=== PATIENT | female | born 1965 | race Caucasian/White ===

== ENCOUNTER 2016-09-15 06:47 | Emergency (ER) | payer OTHER ==
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
[2016-09-15] MEDS: Diph,Pert(Acell),Tet Vac 0.5 ML SYR IM ONE (07:19)
== END 2016-09-15 07:49 | disposition home or self-care (01) ==
LOC: ER 06:47
DX: S61.211A Laceration without foreign body of left index finger without damage to nail, initial encounter (principal); W45.8XXA Other foreign body or object entering through skin, initial encounter; Y92.009 Unspecified place in unspecified non-institutional (private) residence as the place of occurrence of the external cause
CPT/HCPCS: 64450; 90715; 96372; 99283

== ENCOUNTER 2016-11-26 15:55 | Emergency (ER) | payer OTHER ==
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
[2016-11-26] MEDS: MAGNESIUM HYDROXIDE/AL HYDROX 30 ML, LIDOCAINE VISC 2% 200 MG PO ONE ×2 (16:45)
[2016-11-26] MEDS: KETOROLAC 30 MG/ML VIAL IVP ONE (16:46)
[2016-11-26] MEDS: 0.9 % SODIUM CHLORIDE 1000ML 1,000 ML IV PRN (16:46)
[2016-11-26 17:03] LABS: BASO % 0.5 % (0-6); EOS % 3.6 % (0-6); GRAN % 53.8 % (47-80); HEMATOCRIT 41.2 % (35.0-47.0); HEMOGLOBIN 13.9 gm/dl (11.6-16.0); LYMPH % 35.3 % (16-45); MEAN CORPUSCULAR HGB CONC 33.7 g/dl (32-36); MEAN PLATELET VOLUME 9.6 fl (7.4-10.4); MONO % 6.8 % (0-9); PLATELET COUNT 269 K/uL (130-400); RED BLOOD COUNT 4.79 M/uL (3.80-5.40); RED CELL DISTRIBUTION WIDTH 12.8 % (11.5-14.5)
[2016-11-26 17:21] LABS: ALBUMIN 4.1 g/dL (4.0-5.0); ALKALINE PHOSPHATASE 71 U/L (35-104); ALT/SGPT 10 U/L (<33); AST/SGOT 14 U/L (10.0-35.0); BILIRUBIN,DIRECT 0.2 mg/dL (0-0.3); BLOOD UREA NITROGEN 14 mg/dL (6-20); CREATININE 0.7 mg/dL (0.5-0.9); EST GLOMERULAR FILTRATION RATE > 60 mL/min; GLUCOSE,RANDOM 93 mg/dL (74-109); LIPASE 19 U/L (13-60); TOTAL PROTEIN 7.8 g/dL (6.6-8.7)
[2016-11-26 18:00] LABS: URINE BILIRUBIN NEGATIVE (NEGATIVE); URINE BLOOD NEGATIVE (NEGATIVE); URINE COLOR YELLOW; URINE GLUCOSE (UA) NEGATIVE (NEGATIVE); URINE KETONE NEGATIVE (NEGATIVE); URINE LEUKOCYTE ESTERASE SMALL (NEGATIVE); URINE NITRITE NEGATIVE (NEGATIVE); URINE PROTEIN NEGATIVE (NEGATIVE); URINE UROBILINOGEN 0.2 E.U./dL (0.20 - 1.00)
[2016-11-26 18:07] LABS: URINE APPEARANCE SL CLOUDY
[2016-11-26 18:08] LABS: URINE BACTERIA 4+; URINE RBC NONE SEEN (NONE SEEN)
--- NOTE | 2016-11-28 16:19 | CT SCAN REPORT ---
EXAM: CT SCAN ABDOMEN/PELVIS WO CONTRAST HISTORY: ABDOMINAL PAIN. TECHNIQUE: Sequential axial images were obtained from the diaphragms through the ischiorectal fossa without intravenous contrast administration. Sagittal and coronal reformatted images were performed. FINDINGS: Visualized lung bases demonstrate a focal area of scarring/ atelectasis in the right lateral lung base. There is a small sliding-type hiatal hernia. The nonopacified liver, gallbladder, pancreas, and spleen appear normal. The adrenal glands and kidneys appear normal. There is a nonobstructing calculus in the right kidney. No CT findings suggestive of obstructive uropathy. The urinary bladder appears normal. The uterus appears normal. There is fibroid change to the uterus. The small bowel appears normal. The appendix is surgically removed. The osseous structures are normal. IMPRESSION: 1. SMALL NONOBSTRUCTING CALCULUS IN THE RIGHT KIDNEY. NO CT FINDINGS SUGGESTIVE OF OBSTRUCTIVE UROPATHY. 2. THE APPENDIX IS SURGICALLY REMOVED. 3. FIBROID CHANGE TO THE UTERUS. JOB NUMBER: [id number] [facility]
--- NOTE | 2016-11-28 16:22 | ULTRASOUND REPORT ---
EXAM: ULTRASOUND ABDOMEN, COMPLETE HISTORY: ABDOMINAL PAIN. TECHNIQUE: Sonographic evaluation of the abdomen was performed using holland- scale imaging. FINDINGS: There is a benign-appearing cyst in the left lobe of the liver measuring 7 mm x 6 mm. There are no gallstones or ductal dilatation. The common bile duct measures 3 mm. The pancreas and spleen appear normal. The kidneys are normal in size with no hydronephrosis or nephrolithiasis. The abdominal aorta and inferior vena cava are patent. IMPRESSION: BENIGN-APPEARING CYST IN THE LEFT LOBE OF THE LIVER MEASURING 8 MM. THE REMAINDER OF THE EXAMINATION IS UNREMARKABLE. JOB NUMBER: [id number] [facility]
== END 2016-11-26 18:30 | disposition home or self-care (01) ==
LOC: ER 15:55
DX: K29.00 Acute gastritis without bleeding (principal); R10.11 Right upper quadrant pain
CPT/HCPCS: 99284 ×2; 96374; 83690; 85025; 80076; 80048; 81001; 76700; 74176; J1885

== ENCOUNTER 2017-11-25 19:20 | Emergency (ER) | payer OTHER ==
[2017-11-25] MEDS ORDERED: KETOROLAC 30 MG/ML VIAL IVP ONE (19:32)
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
[2017-11-25 19:42] LABS: BASO % 0.4 % (0-6); EOS % 1.6 % (0-6); GRAN % 54.9 % (47-80); HEMATOCRIT 41.5 % (35.0-47.0); HEMOGLOBIN 13.4 gm/dl (11.6-16.0); LYMPH % 36.9 % (16-45); MEAN CELL VOLUME 87.6 fl (81-97); MEAN CORPUSCULAR HEMOGLOBIN 28.3 pg (27-33); MEAN CORPUSCULAR HGB CONC 32.3 g/dl (32-36); MEAN PLATELET VOLUME 9.9 fl (7.4-10.4); MONO % 6.2 % (0-9); PLATELET COUNT 315 K/uL (130-400); RED BLOOD COUNT 4.74 M/uL (3.80-5.40); RED CELL DISTRIBUTION WIDTH 13.2 % (11.5-14.5); WHITE BLOOD COUNT W/O DIFF 9.4 K/uL (4.2-12.2)
[2017-11-25] MEDS ORDERED: 0.9 % SODIUM CHLORIDE 1000ML 1,000 ML IV SCH (19:45)
[2017-11-25 19:49] LABS: BLOOD UREA NITROGEN 10 mg/dL (6-20); CREATININE 0.8 mg/dL (0.5-0.9); EST GLOMERULAR FILTRATION RATE > 60 mL/min
[2017-11-25 19:50] LABS: TOTAL PROTEIN 7.6 g/dL (6.6-8.7)
[2017-11-25 19:52] LABS: GLUCOSE,RANDOM 101 mg/dL (74-109)
[2017-11-25 19:54] LABS: ALB/GLOB RATIO 1.2 (1.1-1.8); ALBUMIN 4.1 g/dL (4.0-5.0); ALT/SGPT 9 U/L (<33); AST/SGOT 13 U/L (10.0-35.0)
[2017-11-25 19:55] LABS: ALKALINE PHOSPHATASE 97 U/L (35-104)
== END 2017-11-25 20:56 | disposition home or self-care (01) ==
LOC: ER 19:20
DX: R09.1 Pleurisy (principal); R07.1 Chest pain on breathing; R06.00 Dyspnea, unspecified; Z86.711 Personal history of pulmonary embolism
CPT/HCPCS: 71275; 80053; 84484; 85025; 96374; 99284; J1885; J7030

== ENCOUNTER 2018-04-10 20:49 | Emergency (ER) | payer OTHER ==
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
[2018-04-10] MEDS ORDERED: ONDANSETRON 4 MG ODT TABLET SL ONE (21:47)
== END 2018-04-10 22:00 | disposition short-term general hospital (02) ==
LOC: ER 20:49
DX: M79.604 Pain in right leg (principal); I10 Essential (primary) hypertension; Z79.01 Long term (current) use of anticoagulants; Z86.718 Personal history of other venous thrombosis and embolism
CPT/HCPCS: 85379; 99285

== ENCOUNTER 2018-06-19 12:25 | Emergency (ER) | payer OTHER ==
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
[2018-06-19 13:06] LABS: BASO % 0.3 % (0-6); EOS % 0.3 % (0-6); GRAN % 71.4 % (47-80); HEMATOCRIT 41.4 % (35.0-47.0); HEMOGLOBIN 13.3 gm/dl (11.6-16.0); LYMPH % 22.2 % (16-45); MEAN CELL VOLUME 88.8 fl (81-97); MEAN CORPUSCULAR HEMOGLOBIN 28.5 pg (27-33); MEAN CORPUSCULAR HGB CONC 32.1 g/dl (32-36); MEAN PLATELET VOLUME 9.3 fl (7.4-10.4); MONO % 5.8 % (0-9); PLATELET COUNT 310 K/uL (130-400); RED BLOOD COUNT 4.66 M/uL (3.80-5.40); RED CELL DISTRIBUTION WIDTH 13.9 % (11.5-14.5); WHITE BLOOD COUNT W/O DIFF 9.9 K/uL (4.2-12.2)
[2018-06-19] MEDS ORDERED: ACETAMINOPHEN 1,000 MG/100 ML BTL IVPB ONE (13:10)
[2018-06-19 13:21] LABS: BLOOD UREA NITROGEN 16 mg/dL (6-20); EST GLOMERULAR FILTRATION RATE > 60 mL/min
[2018-06-19 13:22] LABS: TOTAL PROTEIN 7.4 g/dL (6.6-8.7)
[2018-06-19 13:24] LABS: GLUCOSE,RANDOM 102 mg/dL (74-109)
[2018-06-19 13:25] LABS: URINE APPEARANCE CLEAR; URINE BILIRUBIN NEGATIVE (NEGATIVE); URINE BLOOD LARGE (NEGATIVE); URINE COLOR YELLOW; URINE GLUCOSE (UA) NEGATIVE (NEGATIVE); URINE KETONE NEGATIVE (NEGATIVE); URINE LEUKOCYTE ESTERASE NEGATIVE (NEGATIVE); URINE NITRITE NEGATIVE (NEGATIVE); URINE PROTEIN NEGATIVE (NEGATIVE); URINE UROBILINOGEN 0.2 E.U./dL (0.20 - 1.00)
[2018-06-19 13:25] LABS: PARTIAL THROMBOPLASTIN TIME 25.5 SECONDS (24.5-39.1); PROTHROMBIN TIME (PATIENT) 10.4 SECONDS (9.5-12.1)
[2018-06-19 13:26] LABS: ALT/SGPT 11 U/L (<33)
[2018-06-19 13:27] LABS: ALB/GLOB RATIO 1.4 (1.1-1.8); ALBUMIN 4.3 g/dL (4.0-5.0); ALKALINE PHOSPHATASE 76 U/L (35-104); AST/SGOT 15 U/L (10.0-35.0); CREATINE PHOSPHOKINASE 110 U/L (26-192)
[2018-06-19] MEDS ORDERED: KETOROLAC 30 MG/ML VIAL IVP ONE (13:28)
[2018-06-19 13:31] LABS: URINE WBC NONE SEEN (0-2/hpf)
--- NOTE | 2018-06-22 10:41 | CT SCAN REPORT ---
EXAM: CT SCAN OF THE ABDOMEN AND PELVIS WITHOUT CONTRAST HISTORY: BILATERAL FLANK PAIN WITH BLOOD IN URINE. PREVIOUS HISTORY OF KIDNEY STONES. TECHNIQUE: Standard CT imaging of the abdomen and pelvis was performed without contrast. Additional coronal and sagittal reformatted images were also performed. Comparison: 11/26/16. FINDINGS: There is mild atelectasis at the right lung base. The lung bases are otherwise clear. Tiny cysts within the left hepatic lobe are unchanged. The liver is otherwise unremarkable. The gallbladder, biliary tree, pancreas, spleen, and adrenal glands are normal. There is a 2 mm nonobstructing stone within the right kidney. The kidneys and ureters are otherwise normal. There is no obstructing calculus or hydronephrosis. The aorta is normal in caliber. There is no retroperitoneal lymphadenopathy. There are stable low density fibroids within the uterus. A 3.5 x 2 cm cyst is present within the left ovary. The right ovary is normal in appearance. There are a few scattered diverticula within the sigmoid colon with no evidence for acute diverticulitis. A few right sided diverticula are also present with no diverticulitis. The appendix is surgically absent. There is no pneumoperitoneum or ascites. The urinary bladder is normal. There are no acute osseous abnormalities. IMPRESSION: 1. NO ACUTE INTRAABDOMINAL PATHOLOGY. 2. 2 MM NONOBSTRUCTING STONE WITHIN THE RIGHT KIDNEY. THERE IS NO OBSTRUCTING CALCULUS OR HYDRONEPHROSIS. 3. COLONIC DIVERTICULOSIS WITH NO DIVERTICULITIS. 4. MULTIPLE LOW DENSITY UTERINE FIBROIDS ARE AGAIN NOTED AND ARE NOT SIGNIFICANTLY DIFFERENT. 5. 3.5 X 2 CM LEFT OVARIAN CYST. JOB NUMBER: [id number] MTDD
== END 2018-06-19 14:44 | disposition left against medical advice (07) ==
LOC: ER 12:25
DX: R07.2 Precordial pain (principal); R06.00 Dyspnea, unspecified; R31.0 Gross hematuria
CPT/HCPCS: 74176; 80053; 81001; 82550; 82553; 84484; 85025; 85379; 85610; 85730; 93005; 93010; 96365; 96375; 99284; J1885

== ENCOUNTER 2018-06-24 10:33 | Observation (INO) | payer OTHER ==
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
[2018-06-24] MEDS ORDERED: 0.9 % SODIUM CHLORIDE 1,000 ML BAG IV ONE (11:16)
[2018-06-24] MEDS ORDERED: PROMETHAZINE HCL 12.5 MG in 0.9 % SODIUM CHLORIDE 100ML 100 ML IVPB ONE (11:17)
[2018-06-24] MEDS ORDERED: ACETAMINOPHEN 1,000 MG/100 ML BTL IVPB ONE (11:55)
[2018-06-24 12:00] LABS: ABSOLUTE NEUTROPHIL COUNT 5.58; BASO % 0.3 % (0-6); EOS % 0.8 % (0-6); GRAN % 70.4 % (47-80); HEMATOCRIT 43.1 % (35.0-47.0); HEMOGLOBIN 14.3 gm/dl (11.6-16.0); LYMPH % 23.7 % (16-45); MEAN CORPUSCULAR HEMOGLOBIN 29.2 pg (27-33); MEAN CORPUSCULAR HGB CONC 33.2 g/dl (32-36); MEAN PLATELET VOLUME 9.5 fl (7.4-10.4); MONO % 4.8 % (0-9); PLATELET COUNT 309 K/uL (130-400); RED CELL DISTRIBUTION WIDTH 13.3 % (11.5-14.5); WHITE BLOOD COUNT W/O DIFF 7.9 K/uL (4.2-12.2)
[2018-06-24 12:11] LABS: BLOOD UREA NITROGEN 12 mg/dL (6-20); CREATININE 0.8 mg/dL (0.5-0.9); EST GLOMERULAR FILTRATION RATE > 60 mL/min
[2018-06-24 12:12] LABS: TOTAL PROTEIN 8.1 g/dL (6.6-8.7)
[2018-06-24 12:14] LABS: GLUCOSE,RANDOM 91 mg/dL (74-109)
[2018-06-24 12:17] LABS: ALB/GLOB RATIO 1.3 (1.1-1.8); ALBUMIN 4.5 g/dL (4.0-5.0); ALKALINE PHOSPHATASE 84 U/L (35-104); ALT/SGPT 13 U/L (<33); AST/SGOT 20 U/L (10.0-35.0)
[2018-06-24] MEDS ORDERED: ACETAMINOPHEN 325 MG TAB PO PRN (16:07)
[2018-06-24] MEDS ORDERED: HYDROMORPHONE HCL 2 MG/ML VIAL IVP PRN ×2 (16:07→21:51)
[2018-06-24] MEDS ORDERED: ONDANSETRON HCL IV 4 MG/2 ML VIAL IVP PRN (16:07)
[2018-06-24] MEDS ORDERED: CYCLOBENZAPRINE 10MG TABLET PO PRN (18:01)
[2018-06-24] MEDS: ACETAMINOPHEN 1,000 MG/100 ML BTL IVPB SCH (18:02)
[2018-06-24] MEDS: 0.9 % SODIUM CHLORIDE 1000ML 1,000 ML IV PRN (20:49)
[2018-06-24] MEDS ORDERED: KETOROLAC 30 MG/ML VIAL IVP PRN (21:50)
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
[2018-06-25] MEDS: ACETAMINOPHEN 1,000 MG/100 ML BTL IVPB SCH ×2 (00:14→05:54)
[2018-06-25] MEDS: 0.9 % SODIUM CHLORIDE 1000ML 1,000 ML IV PRN (05:56)
--- NOTE | 2018-06-25 08:06 | CT SCAN REPORT ---
EXAM: NONCONTRAST CT OF THE BRAIN HISTORY: RECENT FALL, HEADACHE. TECHNIQUE: Noncontrast CT of the brain was obtained. Comparison: CT of the brain 01/13/17. FINDINGS: No midline shift, mass effect, or abnormal intra or extraaxial fluid collection. No cerebral edema, focal mass or intracranial hemorrhage detected. Mild bilateral frontal lobe volume loss, stable. The ventricle sizes are similar from prior examination. The basal cisterns are not effaced. No evidence of displaced calvarial fracture. Small polyps or retentions cysts in the right maxillary sinus, otherwise no significant opacification of the paranasal sinuses or mastoid air cells. IMPRESSION: 1. NO ACUTE INTRACRANIAL FINDINGS. JOB NUMBER: [id number] [facility]
--- NOTE | 2018-06-25 10:15 | Discharge Summary ---
Providers Discharge Summary Date: 06/25/18 Date of admission: 06/24/18 15:33 Expected Date of Discharge: 06/25/18 Attending physician: JALEESA RAMOS Primary care physician: JULIO EATON M.D. Physical Exam - Vital Signs Vital Signs: Vital Signs - Last 24 Hrs Temp Pulse Pulse Resp BP BP Pulse Ox 06/25/18 08:44 16 06/25/18 05:00 97.6 F 42 L 18 126/59 98 06/25/18 00:00 97.9 F 41 L 18 119/68 95 06/24/18 20:00 97.9 F 49 L 20 133/61 97 06/24/18 16:07 97.7 F 56 L 16 163/67 99 06/24/18 12:48 47 L 18 111/49 94 L 06/24/18 10:52 97.6 F 49 L 20 143/80 97 - General General Appearance: Alert, Oriented x3, Cooperative, No acute distress Limitations: No limitations - Head Head exam: Atraumatic, Normocephalic - Eye Eye exam: Normal appearance, PERRL - ENT ENT exam: Normal exam, Mucous membranes moist Throat exam: Normal inspection. negative: Tonsillar erythema, Tonsillar exudate - Neck Neck exam: Normal inspection, Full ROM. negative: Tenderness - Respiratory Respiratory exam: Normal lung sounds bilaterally. negative: Respiratory distress - Cardiovascular Cardiovascular Exam: Regular rate, Normal rhythm, Normal heart sounds Peripheral Pulses: 2+: Radial (R), Radial (L), Dorsalis Pedis (R), Dorsalis Pedis (L) - GI/Abdominal GI/Abdominal exam: Soft, Normal bowel sounds. negative: Tenderness - Rectal Rectal exam: Deferred - exam: Deferred - Extremities Extremities exam: Normal inspection, Full ROM, Normal capillary refill. negative: Tenderness - Neurological Neurological exam: Alert, Normal gait, Oriented X3. negative: Abnormal gait, Altered, Motor sensory deficit - Psychiatric Psychiatric exam: Flat affect. negative: Anxious - Skin Skin exam: Normal color Hospitalization - Hospitalization Admission Diagnosis: 1. Acute Post-concussive Syndrome with vomiting. - Problem List/Discharge Diagnosis (1) Post-concussion syndrome Current Visit: Yes Status: Acute Base Code: F07.81 - POSTCONCUSSIONAL SYNDROME Comment: 06/25/18: -Fall down 12 stairs 06/21/18 -Admitted to [facility] 2 nights, negative imaging and findings -Head CT in ED: no acute intracranial findings -CBC and CMP unremarkable -Ofirmev IVPB q6h prn -IV fluids -Toradol 30mg q8h prn -Zofran 4mg q6h prn -Has tolerated PO diet -Reports having zanaflex, oxycodone, and tylenol at home for pain (2) DVT prophylaxis Current Visit: Yes Status: Acute Base Code: Z29.9 - ENCOUNTER FOR PROPHYLACTIC MEASURES, UNSPECIFIED Comment: 06/25/18: -Low risk due to age and no comorbidites -Encourage ambulation within the room (3) Full code status Current Visit: Yes Status: Acute Base Code: Z78.9 - OTHER SPECIFIED HEALTH STATUS Comment: 06/25/18: -Full code this admission - Hospitalization Course Disposition: Home, Self-Care Hospital Course: 52 year old female patient presented to ED for further evaluation of a recent head injury. Patient reported falling down 12 stiars on Thursday. Loss of consciousness likely, as patient reports amnesia for the event. Patient states she was kept at [facility] for 2 nights after the fall. Patient reported no positive findings on imaging while at [facility]. States she had short term memory loss, dizziness, impaired balance, headache, and nausea while admitted at [facility]. Patient states she was discharged Thursday night with muscle relaxers and pain medications, but states she was not able to pick them up yet. Patient states she attempted to go to work this morning but noted a return of her headache and nausea. States she was discharged from [facility] with multiple referrals and instructed to follow-up with "brain rehab". Patient reports no significant past medical history. PCP: Dr. Eaton ED Course: Temp 97.6F, HR 49, RR 20, BP 143/80, Pulse Ox 97% CBC and CMP unremarkable Head CT: no acute intracranial findings 06/24/18: Patient A&O x 4, resting comfortably in bed. Patient reports continued headache, photophobia, and nausea, but states they are improved from admission. Continues to receive IV fluids and Ofirmev. Has tolerated advancing PO diet. 06/25/18: Patient A&O x 4, resting comfortably in bed. Patient reports improvement in headache, has tolerated PO diet. Reports having zanaflex, oxycodone, and tylenol at home. Patient encouraged to continue brain rest, follow-up with brain therapy as referred by Katelyn, and to avoid over-exertion. Procedures: Imaging and X-Rays 06/24/18 11:16 HEAD WO CONTRAST [CT] Stat Abnormal Labs: Abnormal Lab Results 06/24/18 Range/Units 11:50 Calcium 10.1 H (8.6-10.0) mg/dL Condition at Discharge: (2) Stable VTE Discharge VTE Reason For No Overlap Therapy: Not Indicated Discharge Medications - Discharge Medications Home Medications: Ambulatory Orders Acetaminophen [Tylenol 500Mg Tab] 500 mg PO Q6H 06/24/18 [Last Taken Unknown] Oxycodone HCl [Roxicodone] 5 mg PO ASDIR 06/24/18 [Last Taken Unknown] Tizanidine HCl [Zanaflex] 2 mg PO ASDIR 06/24/18 [Last Taken Unknown] Discharge Plan - Discharge Instructions Activity at Discharge: Increase Activity as Tolerated Diet at Discharge: Advance to Usual Diet Additional Instructions: -Avoid stimulation with TV, electronics, computers -Avoid driving -Follow-up with PCP and brain therapy as referred by Katelyn Quality Measures - Quality Measures Quality Measures: Documentation of Current Medications in Medical Record, Screening for High Blood Pressure and F/U Documented - Current Medications Quality Measure: Measure #130: Documentation of Current Medications Documentation of Current Medications: <Current Medications Documented/Reviewed> [G8427] - Blood Pressure Screening Quality Measure: Screening for High Blood Pressure and Follow-Up Documented Does Patient Have Any of the Following: No Blood Pressure Classification: Pre-Hypertensive BP Reading Systolic Measurement: 143 Diastolic Measurement: 80 Screening for High Blood Pressure: < Pre-Hypertensive BP, F/U Documented > [G8950] Pre-Hypertensive Follow-up Interventions: Referral to alternative/primary care provider. - Elder Abuse Suspicion Index EASI Reference Information: Stanley MARTINEZ, Vikas C, Eva D, Zenia M.Development and validation of a tool to assist physicians identification of elder abuse: The Elder Abuse Suspicion Index (EASI ). Journal of Elder Abuse and Neglect, 2008; 20 (3): 276-300.
== END 2018-06-25 10:30 | disposition home or self-care (01) ==
LOC: ER 10:33 → UNDOADMOB 15:33 → MEDSURG 15:33
PROVIDERS: ADMIT Internal Medicine; ATTEND Internal Medicine
DX: F07.81 Postconcussional syndrome (principal); R51 Headache; H53.149 Visual discomfort, unspecified; R11.11 Vomiting without nausea; Z86.711 Personal history of pulmonary embolism; Z86.718 Personal history of other venous thrombosis and embolism
CPT/HCPCS: 99285 ×2; 96365; 96366; 96368; 85025; 80053; 70450; G0378 ×2; J1885; J1170; 99217; 99220; J2405; J2550; J7030

== ENCOUNTER 2018-11-11 19:50 | Emergency (ER) | payer OTHER ==
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
== END 2018-11-11 20:49 | disposition home or self-care (01) ==
LOC: ER 19:50
DX: M67.422 Ganglion, left elbow (principal)
CPT/HCPCS: 10060; 99284